=== PATIENT | male | born 1940 | race Caucasian/White ===

== ENCOUNTER → 2018-06-06 14:19 | Outpatient (CLI) | payer MEDICARE, OTHER ==
[2015-01-10 00:40] VITALS: BMI 27.6
[~2018-06-06 14:19] MED LIST: ASPIRIN81 MG PO; CLARITIN 10 MG10 MG PO; DURICEF500 MG PO; FISH OIL 1,2001 CAP PO; FLUTICASONE PRO16 GM NASAL; GLUCOPHAGE500 MG PO; HYDROCODON-ACE1 EAC7 PO; IPRATROPIUM BR21 MCG NASAL; LYRICA75 MG PO; MIRALAX17 GM PO; NAMENDA10 MG PO; OCUVITE TABLET1 TA1 PO; WELCHOL625 MG PO; ZESTRIL10 MG PO; ZOFRAN ODT4 MG/UDTAB PO
== END | disposition home or self-care (01) ==
LOC: D.MRI 14:19
DX: M75.101 Unspecified rotator cuff tear or rupture of right shoulder, not specified as traumatic (principal)

== ENCOUNTER → 2018-06-12 16:38 | Outpatient (CLI) | payer MEDICARE, OTHER ==
[2015-01-10 00:40] VITALS: BMI 27.6
== END | disposition home or self-care (01) ==
LOC: D.LABREF 16:38
DX: M19.011 Primary osteoarthritis, right shoulder (principal); Z11.8 Encounter for screening for other infectious and parasitic diseases

== ENCOUNTER → 2018-06-13 08:53 | Outpatient (CLI) | payer MEDICARE, OTHER ==
[2015-01-10 00:40] VITALS: BMI 27.6
== END | disposition home or self-care (01) ==
LOC: D.LABREF 08:53
DX: M19.011 Primary osteoarthritis, right shoulder (principal); Z11.8 Encounter for screening for other infectious and parasitic diseases

== ENCOUNTER 2018-07-11 07:58 | Inpatient (IN) | payer MEDICARE, OTHER ==
[2018-07-10 11:43] LABS: BASOPHILS 0.5 % (0-2); HEMATOCRIT 44.5 % (42.0-54.0); HEMOGLOBIN 14.8 g/dL (13.5-17.5); IMMATURE GRANULOCYTES 0.4 % (0-5); LYMPHOCYTES 26.9 % (15-50); MCH 29.8 pg (26.0-34.0); MCHC 33.3 g/dL (31.0-37.0); MCV 89.5 fL (80.0-100.0); MONOCYTES 6.4 % (2-11); NEUTROPHILS 63.8 % (40-80); PLATELET COUNT 206 10x3/uL (130-400); RBC 4.97 10x6/uL (4.20-6.10); RDW 14.1 % (11.5-14.5); WBC 8.3 10x3/uL (4.8-10.8)
[2018-07-10 12:05] LABS: APPEARANCE CLEAR (CLEAR); BILIRUBIN NEGATIVE (NEGATIVE); COLOR YELLOW (YELLOW); GLUCOSE NEGATIVE (NEGATIVE); KETONE NEGATIVE (NEGATIVE); NITRITE NEGATIVE (NEGATIVE); PROTEIN NEGATIVE (NEGATIVE); UROBILINOGEN NORMAL (NORMAL)
[2018-07-10 12:10] LABS: CALC OSMOLALITY 284 mosm/kg (275-300); CARBON DIOXIDE 33.3 mmol/L (21.0-32.0); CHLORIDE - SERUM 105 mmol/L (98-107); CREATININE - SERUM 0.9 mg/dL (0.6-1.3); GLUCOSE 113 mg/dL (74-106); SODIUM 142 mmol/L (136-145); UREA NITROGEN 15 mg/dL (7-18); eGFR NON AFRICAN AMERICAN 87 mL/min (90-120)
[2018-07-10 13:00] LABS: INR 0.92 (0.85-1.17)
[~2018-07-11] VITALS: Ht 188 cm; Wt 97.5 kg
--- NOTE | ~2018-07-11 | OP ---
PATIENT NAME: JAIDEN PIERRE MEDICAL RECORD: [id number] :41 LOCATION:[id number] ADMISSION DATE:07/11/18 SURGEON: JOSE LUIS ROLON, DATE OF OPERATION: 07/11/2018 PROCEDURE PERFORMED: Right reverse total shoulder arthroplasty. PREOPERATIVE DIAGNOSIS: Right shoulder rotator cuff arthropathy. POSTOPERATIVE DIAGNOSIS: Right shoulder rotator cuff arthropathy. INDICATIONS: Mr. Pierre is a 77-year-old right-hand dominant male who presented to my office with an MRI that showed a torn rotator cuff, the supraspinatus and infraspinatus. I had a long discussion with him, telling that we could scope the shoulder and repair it, but due to the fact that he is 77, he may not have tissue amenable to that, but even we could do that and to try to repair it and he could retear it, but certainly we could try and then it would be a 12-week recovery or we can do a reverse total shoulder and be about a 6-week recovery. He opted to go with a reverse total shoulder. He is aware of the risks and benefits including infection, bleeding, damage to nerves, vessels and need for any further surgery. He is aware of that and aware of the risks and opted to go with a reverse total shoulder and was consented for the procedure. SURGEON: Jose Luis Rolon DO DESCRIPTION OF PROCEDURE: The patient was given a block in the preoperative area by anesthesia and taken to the operative suite, laid in supine position, given general anesthetic, intubated. He was then placed in the beach chair position and the right shoulder was prepped and draped in sterile fashion and 900 mg of clindamycin were given to the patient. A timeout was performed and everyone was in agreement with the correct side, site, patient, and procedure. Counts were correct pre and post procedure for needle. Once the patient was prepped and draped, an incision was made in the deltopectoral interval with a 10 blade scalpel and then Bovied down to the cephalic vein. The cephalic vein was taken laterally. The deltopectoral interval was opened. The proximal centimeter of the pec was released off the humerus and the biceps tendon was tagged and attached to the stump and the humerus. Then the bicep was taken and the rotator interval was opened. The subscap was then tagged with a #2 Ethibond and was peeled off of the humerus. This opened up the joint. The humerus was exposed. The tear of the infraspinatus, supraspinatus were noted and the fibers that remained were divided at that time. The intramedullary guide was then used to cut the humerus. Humerus was cut and the glenoid was exposed. Labrum was removed and all bleeders were coagulated throughout the procedure. The center of the pin was then used on the glenoid and a reamer and then a baseplate was put in, a 25 baseplate lateralize 3 mm. A superior and inferior screw were used locking in the baseplate, 22 superiorly and 18 inferiorly, a 40-mm screw was used to the baseplate. The glenosphere was then put on and tightened and then the humerus was exposed and recut due to fact that it appeared to be a very tight fit. After it was recut, broaching began up to a 6. A 6 stem was used and the trial was put in place, reduced nicely and had good tension on the conjoined tendon and the deltoid with a 6 poly. This implant was then removed after the shoulder had been reduced and then dislocated and then this implant was removed and a very thorough irrigation was used throughout the shoulder and the implant was put into place. The poly was impacted onto the stem and the OPERATIVE REPORT [id number] [facility]EN. Shoulder was reduced, had good range of motion intraoperatively and the wound again was thoroughly irrigated. A drain was put in and Surgicel beads were used around the wound and then the shoulder joint itself. The wound was then closed. The deltopectoral interval was closed with a #1 Vicryl in a simple suture fashion loosely approximated and then 2-0 Vicryl in inverted interrupted fashion was used to close the skin and then 4-0 Monocryl was ran on the skin and Prineo was used on the skin. The Telfa and Tegaderm were placed on the wound and a drain was stitched into place with nylon and tied. The patient was then awakened and taken to recovery in stable condition. Blood loss approximately 500 mL. Complications were none. TRANSINT:[id number] Voice Confirmation ID: [id number] DOCUMENT ID: [id number] JOSE LUIS ROLON DO at 1129 CC: [id number] DICTATION DATE: 07/11/18 1508 WEAPONS ENGINEER: 07/11/18 1531 ADM IN [place] [id number] [place] [id number]
[~2018-07-11 07:58] MED LIST changes: -DURICEF500 MG PO; -HYDROCODON-ACE1 EAC7 PO; -ZOFRAN ODT4 MG/UDTAB PO
[2018-07-11 08:38] VITALS: BP 125/74; BMI 27.6
[2018-07-11 16:24] VITALS: BP 139/76
[2018-07-11 20:00] VITALS: BP 122/68
[2018-07-12] VITALS: BP 106/57
[2018-07-12 04:00] VITALS: BP 100/56
[2018-07-12 05:26] LABS: HEMATOCRIT 38.8 % (42.0-54.0); HEMOGLOBIN 12.8 g/dL (13.5-17.5); MCH 29.2 pg (26.0-34.0); MCV 88.4 fL (80.0-100.0); MEAN PLATELET VOLUME 11.6 fL (7.4-10.4); RBC 4.39 10x6/uL (4.20-6.10); RDW 14.3 % (11.5-14.5)
[2018-07-12 05:35] LABS: WBC 11.4 10x3/uL (4.8-10.8)
[2018-07-12 09:13] VITALS: Ht 188 cm; Wt 97.5 kg
[2018-07-12 09:33] VITALS: BP 117/61
[2018-07-12] MEDS ORDERED: HYDROCODON-ACE1 EAC7 PO (11:23)
[2018-07-12] MEDS ORDERED: ZOFRAN ODT4 MG/UDTAB PO (11:23)
[2018-07-12] MEDS ORDERED: DURICEF500 MG PO (11:24)
[2018-07-12 11:30] VITALS: BP 121/64
== END 2018-07-12 14:38 | disposition home or self-care (01) | DRG 483 ==
LOC: D.SDCHOLD 07:58 → D.MS 07:58 → D.SDCHOLD 10:30 → D.MS 15:40
PROVIDERS: Orthopaedic Surgery
PROC: 0RRJ00Z Replacement of Right Shoulder Joint with Reverse Ball and Socket Synthetic Substitute, Open Approach (ICD-10-PCS; principal; 2018-07-11 10:30)
DX: M75.121 Complete rotator cuff tear or rupture of right shoulder, not specified as traumatic (principal); G47.33 Obstructive sleep apnea (adult) (pediatric); E11.42 Type 2 diabetes mellitus with diabetic polyneuropathy

== ENCOUNTER 2019-07-31 08:51 | Day surgery (SDC) | payer MEDICARE, OTHER ==
[~2019-07-31] VITALS: Ht 188 cm; Wt 97.5 kg
[~2019-07-31 08:51] MED LIST changes: +DURICEF500 MG PO; +HYDROCODON-ACE1 EAC7 PO; +ZOFRAN ODT4 MG/UDTAB PO
[2019-07-31 10:07] VITALS: BP 128/73; Ht 188 cm; Wt 97.5 kg
[2019-07-31] MEDS ORDERED: ULTRAM50 MG PO (12:07)
[2019-07-31] MEDS ORDERED: DURICEF500 MG PO (12:07)
--- NOTE | 2019-07-31 14:44 | OP ---
PATIENT NAME: JAIDEN PIERRE MEDICAL RECORD: [id number] :41 LOCATION:[facility] ADMISSION DATE: SURGEON: RIKKI ROLON DO DATE OF OPERATION: 07/31/2019 PROCEDURE PERFORMED: Left index and middle finger A1 yaa release. PREOPERATIVE DIAGNOSIS: Left index and middle trigger fingers. POSTOPERATIVE DIAGNOSIS: Left index and middle trigger fingers. INDICATIONS: Mr. Pierre is a 78-year-old male who had trigger fingers for quite some time. He said he is tired of them locking on him and catching. He has had to unlock manually for quite some time. I gave him an injection in both, but to no avail. He wanted them released. He was informed of the risks including damage to nerves in the area, vessels, need for further surgery, contractures of the fingers and continued pain. He was okay with that and signed the consent. SURGEON: Rikki Rolon DO DESCRIPTION OF PROCEDURE: The patient was taken to the operative suite, laid in the supine position, given general anesthetic and LMA was placed. The left upper extremity was prepped and draped in sterile fashion. Timeout was performed. Everyone was in agreeance with the correct side, site, patient, and procedure. The left lower extremity was then exsanguinated with an Esmarch. Tourniquet was inflated to 250 mmHg, it was up for 12 minutes. The incision began first over the index finger flexor tendon and careful dissection was made down to the A1 yaa. This was released from [id number] and the dissection was made down with Ragnell's bluntly. Then, the tendon was pulled out through the incision to assure there was a full release. The same process was repeated on the middle finger. The incision was extended from the index to the middle in order to save the skin bridge and the A1 yaa was released and the tendon was pulled out through ensuring there was no catching or locking. The tourniquet was then let down. The site was injected with 8 mL of 0.5% Marcaine with epinephrine in the area and then the bleeding was coagulated with the bipolar. The incision was then closed with a 4-0 nylon in a running fashion. Adaptic, 4 x 4's, Kerlix and Coban was lightly wrapped on the hand. He was then awakened and taken to recovery in stable condition. BLOOD LOSS: Minimal. COMPLICATIONS: None. TRANSINT:[id number] Voice Confirmation ID: [id number] DOCUMENT ID: [id number] RIKKI ROLON DO at 1444 CC: [id number] DICTATION DATE: 07/31/19 1205 BUTADIENE CONVERTOR OPERATOR: 07/31/19 1316 [facility] 07/31/19 [place] [id number] [place] [id number]
== END 2019-07-31 14:05 | disposition home or self-care (01) ==
LOC: D.OPS 08:51 → D.PAN 11:30 → D.OPS 12:35 → D.PAN 12:35 → D.OPS 12:45 → D.PAN 12:45 → D.OPS 14:05
PROVIDERS: ATTEND Orthopaedic Surgery
DX: M65.322 Trigger finger, left index finger (principal); M65.332 Trigger finger, left middle finger; Z01.812 Encounter for preprocedural laboratory examination

== ENCOUNTER 2020-04-04 08:00 | Outpatient (CLI) | payer MEDICARE, OTHER ==
[~2020-04-04] VITALS: Ht 188 cm; Wt 97.5 kg
[~2020-04-04 08:00] MED LIST changes: +ULTRAM50 MG PO
[2020-04-04] MEDS ORDERED: NEURONTIN 300300 MG PO (10:18)
[2020-04-04 10:56] LABS: HEMATOCRIT 41.7 % (42.0-54.0); HEMOGLOBIN 13.3 g/dL (13.5-17.5); MCH 28.3 pg (26.0-34.0); MCHC 31.9 g/dL (31.0-37.0); MCV 88.7 fL (80.0-100.0); MEAN PLATELET VOLUME 10.4 fL (7.4-10.4); RBC 4.7 10x6/uL (4.20-6.10); RDW 14.2 % (11.5-14.5)
[2020-04-04 11:07] LABS: CALC OSMOLALITY 285 mosm/kg (275-300); CALCIUM 8.6 mg/dL (8.5-10.1); CARBON DIOXIDE 27.7 mmol/L (21.0-32.0); CHLORIDE - SERUM 104 mmol/L (98-107); GLUCOSE 138 mg/dL (74-106); POTASSIUM - SERUM 3.8 mmol/L (3.5-5.1); SODIUM 141 mmol/L (136-145); UREA NITROGEN 22 mg/dL (7-18); eGFR NON AFRICAN AMERICAN 77 mL/min (90-120)
[2020-04-18 10:02] VITALS: Ht 188 cm; Wt 97.5 kg
== END 2020-04-04 08:01 | disposition home or self-care (01) ==
LOC: D.PAN 08:00 → EDSTATUS 04-08 07:00 → D.PAN 04-08 07:00 → D.OPS 04-08 07:00
PROVIDERS: Anesthesiology; ATTEND Orthopaedic Surgery
DX: G56.03 Carpal tunnel syndrome, bilateral upper limbs (principal)

== ENCOUNTER 2020-04-18 09:00 | Day surgery (SDC) | payer MEDICARE, OTHER ==
[~2020-04-18] VITALS: Ht 188 cm; Wt 97.5 kg
[~2020-04-18 09:00] MED LIST changes: +NEURONTIN 300300 MG PO
[2020-04-18 09:17] LABS: HEMATOCRIT 41.3 % (42.0-54.0); HEMOGLOBIN 13.2 g/dL (13.5-17.5); MCH 28.4 pg (26.0-34.0); MCV 88.8 fL (80.0-100.0); MEAN PLATELET VOLUME 10.6 fL (7.4-10.4); RBC 4.65 10x6/uL (4.20-6.10); RDW 14.2 % (11.5-14.5); WBC 6.7 10x3/uL (4.8-10.8)
[2020-04-18 10:02] VITALS: BP 133/82; Ht 188 cm; Wt 97.5 kg
--- NOTE | 2020-04-18 15:09 | NUR ---
1400-REMOVED IV WITH CATH INTACT,DISPOSED INTO SHARPS,COVERED WITH GUAZE,SECURED WITH MEDIPORE TAPE.REVIEWED POST OP INSTRUCTIONS AND FOLLOW UP APPOINTMENT.
--- NOTE | 2020-04-18 15:09 | NUR ---
1345-AMBULATED TO AND VOIDED WITHOUT COMPLICATIONS.VSS.DENIES PAIN.NO DISTRESS.NO N/V
--- NOTE | 2020-04-18 15:10 | NUR ---
1415-PT DRESSED. ESCORTED OUT VIA W/C WITH DAUGHTER TO DRIVE HOME.
--- NOTE | 2020-04-19 09:29 | OP ---
PATIENT NAME: JAIDEN PIERRE MEDICAL RECORD: [id number] :41 LOCATION:[facility] ADMISSION DATE: SURGEON: JOSE LUIS ROLON DO DATE OF OPERATION: 04/18/2020 PROCEDURE PERFORMED: Right endoscopic carpal tunnel release. PREOPERATIVE DIAGNOSIS: Right carpal tunnel syndrome. POSTOPERATIVE DIAGNOSIS: Right carpal tunnel syndrome. INDICATIONS: Mr. Pierre is a 79-year-old male well known to me, who presented to my office complaining of bilateral hand numbness and tingling. He says it wakes him up every night and every time he drove; he was tired of dealing with it. I informed that we could get a nerve conduction study, but it may take him a month or so to get in. He did not want to do that. I told him that he likely has carpal tunnel, but we would not know how severe due to the fact he did not get a nerve conduction study, but after releasing it should relieve the pain, but may not get his nerve function to return. He was aware of that and aware of the risks including damage to the median nerve, continued pain, and pain in the palm, bleeding, and infection and he signed the consent. SURGEON: Jose Luis Rolon DO DESCRIPTION OF PROCEDURE: The patient was taken to the operative suite, laid in supine position, given general anesthetic and LMA was placed, given 2 grams of Ancef preoperatively. The right upper extremity was then prepped and draped in sterile fashion. Timeout was performed, everyone was in agreement of the correct side, site, patient, and procedure. We then exsanguinated the right upper extremity with an Esmarch and tourniquet was inflated to 250 mmHg, it was up for 9 minutes. Then we began by centering incision at the volar wrist over the palmaris longus tendon, made an incision through the skin and then used Ragnell to carefully dissect down to the carpal tunnel. The fascia was then released from distal to proximal. At that site, the dilator was then entered into the carpal tunnel. The sheath was then brought in and the camera and then the probe and the rasps were used to clean the transverse carpal ligament. Once we had a good view of that, I brought in the blade and raised it up and transected the transverse carpal ligament and fat herniated down into the carpal tunnel at that time. I then removed the instruments and long end of the Ragnell was used to view the carpal tunnel. Any remaining fibers were transected or spread with scissors. I then injected the area with 0.25% Marcaine with epinephrine 10 mL of it. Tourniquet was then let down. Any bleeding was coagulated with bipolar. I then closed the incision with 5-0 Monocryl in inverted interrupted fashion. Steri-Strips, Adaptic, 4 x 4's, Kerlix, and Coban lightly wrapped on the hand. He was then awakened and taken to recovery in stable condition. BLOOD LOSS: Minimal. COMPLICATIONS: None. TRANSINT:[id number] Voice Confirmation ID: [id number] DOCUMENT ID: [id number] OPERATIVE REPORT [id number] JAIDEN PIERRE MICHAEL D, DO at 0929 CC: [id number] DICTATION DATE: 04/18/20 1632 MANAGER APPLICATION DEVELOPMENT: 04/19/20 0210 [facility] 04/18/20 [place] [id number] [place] [address]
== END 2020-04-18 14:15 | disposition home or self-care (01) ==
LOC: D.OPS 09:00 → D.PAN 15:15 → D.OPS 15:15
PROVIDERS: Anesthesiology; ATTEND Orthopaedic Surgery
DX: G56.01 Carpal tunnel syndrome, right upper limb (principal); E11.9 Type 2 diabetes mellitus without complications; E78.2 Mixed hyperlipidemia; F03.90 Unspecified dementia, unspecified severity, without behavioral disturbance, psychotic disturbance, mood disturbance, and anxiety; K21.9 Gastro-esophageal reflux disease without esophagitis; I10 Essential (primary) hypertension; Z79.84 Long term (current) use of oral hypoglycemic drugs; M23.331 Other meniscus derangements, other medial meniscus, right knee

== ENCOUNTER 2020-05-02 05:28 | Day surgery (SDC) | payer MEDICARE, OTHER ==
[~2020-05-02] VITALS: Ht 188 cm; Wt 97.5 kg
[2020-05-02 06:09] LABS: HEMOGLOBIN 13.6 g/dL (13.5-17.5); MCH 28.3 pg (26.0-34.0); MCHC 31.6 g/dL (31.0-37.0); MCV 89.4 fL (80.0-100.0); MEAN PLATELET VOLUME 11.2 fL (7.4-10.4); RBC 4.81 10x6/uL (4.20-6.10); RDW 13.8 % (11.5-14.5); WBC 7.6 10x3/uL (4.8-10.8)
[2020-05-02 06:11] LABS: CALC OSMOLALITY 285 mosm/kg (275-300); CALCIUM 8.4 mg/dL (8.5-10.1); CARBON DIOXIDE 27.9 mmol/L (21.0-32.0); CHLORIDE - SERUM 107 mmol/L (98-107); GLUCOSE 114 mg/dL (74-106); POTASSIUM - SERUM 3.7 mmol/L (3.5-5.1); SODIUM 142 mmol/L (136-145); UREA NITROGEN 18 mg/dL (7-18); eGFR NON AFRICAN AMERICAN 77 mL/min (90-120)
[2020-05-02 06:18] VITALS: BP 148/84; Ht 188 cm; Wt 97.5 kg
--- NOTE | 2020-05-02 07:49 | NUR ---
LEFT OPERATIVE SITE ELEVATED WITH ICE IN PLACE.
--- NOTE | 2020-05-02 16:13 | OP ---
PATIENT NAME: JAIDEN PIERRE MEDICAL RECORD: [id number] :41 LOCATION:[facility] ADMISSION DATE: SURGEON: JOSE LUIS ROLON DO DATE OF OPERATION: 05/02/2020 PROCEDURE PERFORMED: Left endoscopic carpal tunnel release. PREOPERATIVE DIAGNOSIS: Left carpal tunnel syndrome. POSTOPERATIVE DIAGNOSIS: Left carpal tunnel syndrome. INDICATIONS: Mr. Pierre is a 79-year-old male well known to me, had his right carpal tunnel done a few weeks ago. He was tired of the pain and wakes him up at night and going to sleep while he was driving and doing all things and mostly the pain is waking him up at night. He did not get a nerve conduction study because he did not want to wait for it and he wanted the pain to go away. I informed him of the risks including infection, bleeding, damage to the median nerve, continued numbness due to the fact we do not know how bad it was pinched, tingling, continued pain and he signed the consent. SURGEON: Jose Luis Rolon DO DESCRIPTION OF PROCEDURE: The patient was taken to the operative suite, laid in supine position, given general anesthetic, sedated and a LMA was placed. The left upper extremity was then prepped and draped in sterile fashion. A timeout was performed and everyone was in agreeance with the correct side, site, patient and procedure. I then exsanguinated the left upper extremity with Esmarch, tourniquet was inflated to 250 mmHg and the incision was made at the volar wrist crease, close to the palm of the hand, it was centered over the palmaris longus tendon. An incision was made just through the skin and the Ragnells were used to bluntly dissect down to the carpal tunnel to the median nerve. The palmaris longus was taken radially. Once the median nerve was exposed, I released the fascia of the forearm from distal to proximal on top of the nerve. We then entered the carpal tunnel with the dilators and then the sheath entered in. I then entered the scope in and used the probe and a rasp to clean off the transverse carpal ligament to look to see if there was any transligamentous nerve and there did not appear to be. I then brought the blade in, raised it up and transected the transverse carpal ligament and fat herniated down into the carpal tunnel indicating good release. I then used long end of the Ragnell and then scissors to spread any remaining fibers that were left on the transverse carpal ligament. The tourniquet was then let down at 7 minutes, I injected the site with 10 mL of 0.25% Marcaine with 1% epinephrine in the site and then closed it with a 5-0 Monocryl in inverted interrupted fashion. Steri-Strips, Adaptic, 4 x 4's, Kerlix, and Coban was lightly wrapped on the wrist. He was then awakened and taken to recovery in stable condition. BLOOD LOSS: Minimal. COMPLICATIONS: None. TRANSINT:[id number] Voice Confirmation ID: [id number] DOCUMENT ID: [id number] OPERATIVE REPORT [id number] JAIDEN PIERRE MICHAEL D, DO at 1613 CC: [id number] DICTATION DATE: 05/02/20 0836 STONE SPREADER OPERATOR: 05/02/20 1607 [facility] 05/02/20 [place] [id number] [place] [address]
== END 2020-05-02 09:00 | disposition home or self-care (01) ==
LOC: D.OPS 05:28 → D.PAN 17:30
PROVIDERS: Anesthesiology; ATTEND Orthopaedic Surgery
DX: G56.02 Carpal tunnel syndrome, left upper limb (principal); J45.909 Unspecified asthma, uncomplicated; I10 Essential (primary) hypertension; F03.90 Unspecified dementia, unspecified severity, without behavioral disturbance, psychotic disturbance, mood disturbance, and anxiety; E11.9 Type 2 diabetes mellitus without complications; E78.2 Mixed hyperlipidemia; Z79.84 Long term (current) use of oral hypoglycemic drugs